=== PATIENT | male | born 2000 | race Caucasian/White ===

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

== ENCOUNTER 2022-10-20 18:56 | Emergency (ER) | payer BC ==
[~2022-10-20] VITALS: Ht 175.3 cm; Wt 74.8 kg
--- NOTE | 2022-10-20 19:15 | NUR ---
C/O LEFT RIB PAIN S/P MECHANICAL FALL 2 WEEKS AGO. PATIENT IS AAOX4. ABLE TO MAKE NEEDS KNOWN. PAIN IS TRIGGERED WHEN HE BREATHE. SCALE OF 3/10. +SOB, -CP, NOT IN CP DISTRESS.
--- NOTE | 2022-10-20 19:43 | NUR ---
FLIGHT OPERATIONS SPECIALIST AT BEDSIDE
--- NOTE | 2022-10-20 21:00 | NUR ---
CALLED RADIOLOGY DEPT TO PROVIDE CD FOR PT
--- NOTE | 2022-10-20 21:23 | NUR ---
Patient discharged to home in stable condition. Written and verbal after care instructions given. Patient verbalizes understanding of instruction.
[2022-10-20 21:24] VITALS: BP 138/81
== END 2022-10-20 21:24 | disposition home or self-care (01) ==
LOC: ER 19:06
DX: R07.81 Pleurodynia (principal)
CPT/HCPCS: 71100-TC

== ENCOUNTER 2024-05-03 13:36 | Emergency (ER) | payer BC, OTHER ==
[~2024-05-03] VITALS: Ht 175.3 cm; Wt 68.0 kg
[2024-05-03 14:10] VITALS: TEMP 98.5
[2024-05-03 14:41] LABS: BASOPHILS # (AUTO) 0.1 K/uL (0.0-0.2); BASOPHILS % (AUTO) 0.9 % (0.0-2.0); EOSINOPHILS # (AUTO) 0.4 K/uL (0.0-0.7); EOSINOPHILS % (AUTO) 5.9 % (0.0-6.0); HEMATOCRIT 45 % (39-51); HEMOGLOBIN 15.1 g/dL (13.5-17.5); LYMPHOCYTES # (AUTO) 2.2 K/uL (0.8-4.8); LYMPHOCYTES % (AUTO) 31.3 % (20.0-44.0); MEAN CORPUSCULAR HEMOGLOBIN 31 PG (26.0-33.0); MEAN CORPUSCULAR HGB CONC 34 g/dl (31.0-36.0); MEAN CORPUSCULAR VOLUME 92 fL (80-96); MONOCYTES # (AUTO) 0.5 K/uL (0.1-1.30); MONOCYTES % (AUTO) 7.3 % (2.0-12.0); NEUTROPHILS # (AUTO) 3.8 K/uL (1.8-8.9); NEUTROPHILS % (AUTO) 54.6 % (43.0-81.0); PLATELET COUNT (AUTO) 245 K/uL (150-450); RED BLOOD CELL COUNT(AUTO) 4.87 MIL/uL (4.5-6.0); RED CELL DISTRIBUTION WIDTH 13.8 % (11.5-15.0); WHITE BLOOD COUNT (AUTO) 6.9 K/uL (4.3-11.0)
[2024-05-03 14:47] LABS: CALCIUM, SERUM 9.3 mg/dL (8.5-10.1); CARBON DIOXIDE 28 mmol/L (21-32); CHLORIDE 105 mmol/L (98-107); GLUCOSE 84 mg/dL (74-106); POTASSIUM 4.5 mmol/L (3.5-5.1); SODIUM SERUM 140 mmol/L (136-145); UREA NITROGEN, BLOOD 22 mg/dL (7-18)
[2024-05-03] MEDS ORDERED: NAPR-1164 PO (15:36)
[2024-05-03 15:55] VITALS: BP 136/80; O2SAT 100
== END 2024-05-03 15:57 | disposition home or self-care (01) ==
LOC: ER 13:56
DX: R07.2 Precordial pain (principal); L97.429 Non-pressure chronic ulcer of left heel and midfoot with unspecified severity; R94.31 Abnormal electrocardiogram [ECG] [EKG]
CPT/HCPCS: 36415; 71045-TC; 80048-TC; 84484-TC; 85025-TC

== ENCOUNTER 2024-12-05 21:00 | Emergency (ER) | payer OTHER ==
[~2024-12-05] VITALS: Ht 172.7 cm; Wt 72.6 kg
[~2024-12-05 21:00] MED LIST: NAPR-1164 PO
[2024-12-05] MEDS ORDERED: IBUPROFEN 400 MG TABLET ONE (23:36)
[2024-12-05] MEDS: IBUPROFEN 400 MG TABLET PO ONE (23:56)
[2024-12-06 00:52] VITALS: BP 131/89; TEMP 98; O2SAT 99
== END 2024-12-06 00:52 | disposition home or self-care (01) ==
LOC: ER 21:05
DX: S13.4XXA Sprain of ligaments of cervical spine, initial encounter (principal); S63.591A Other specified sprain of right wrist, initial encounter; S40.012A Contusion of left shoulder, initial encounter; S30.0XXA Contusion of lower back and pelvis, initial encounter; F17.200 Nicotine dependence, unspecified, uncomplicated; V43.02XA Car driver injured in collision with other type car in nontraffic accident, initial encounter; Y93.89 Activity, other specified; Y92.415 Exit ramp or entrance ramp of street or highway as the place of occurrence of the external cause; Y99.8 Other external cause status
CPT/HCPCS: 72110-TC; 73030-TC; 73110